=== PATIENT | female | born 1980 | race Caucasian/White ===

== ENCOUNTER → 2023-07-26 09:56 | Outpatient (REF) | payer BC, SELFPAY | LOC: HWRAD 09:56 | PROVIDERS: ATTENDING PHYSICIAN Family Medicine | DX: M54.40 Lumbago with sciatica, unspecified side (principal) | CPT/HCPCS: 72110 ==

== ENCOUNTER → 2024-07-14 18:43 | Outpatient (REF) | payer BC, SELFPAY | LOC: PAVMRI 18:43 | PROVIDERS: ATTENDING PHYSICIAN Family Medicine | DX: M54.40 Lumbago with sciatica, unspecified side (principal); Z85.72 Personal history of non-Hodgkin lymphomas; R29.898 Other symptoms and signs involving the musculoskeletal system; R20.2 Paresthesia of skin | CPT/HCPCS: 72148 ==

== ENCOUNTER → 2024-08-28 09:13 | Outpatient (REF) | payer BC, SELFPAY ==
[2024-08-28 10:24] LABS: % Basophils 0.5 % (0-2); % Eosinophils 1.7 % (0-6); % Immature Granulocytes 0.3 % (0-0.5); % Lymphocytes 34.4 % (20.5-51.1); % Monocytes 8.1 % (1.7-9.3); Absolute Basophils 0.1 10^3/uL (0-0.2); Absolute Eosinophils 0.2 10^3/uL (0-0.7); Absolute Lymphocytes 3.4 10^3/uL (1.2-3.4); Absolute Monocytes 0.8 10^3/uL (0.1-0.6); Absolute Neutrophils 5.4 10^3/uL (1.4-6.5); Hematocrit 37.4 % (37.0-47.0); Hemoglobin 11.5 g/dL (12.0-16.0); Mean Corp Hgb Conc. 30.7 g/dL (33.0-37.0); Mean Corpuscular Hgb 23.8 pg (27.0-31.0); Mean Corpuscular Volume 77.3 fL (81.0-99.0); Mean Platelet Volume 10.2 fL (7.4-10.4); Nucleated Red Blood Cells % 0 %; Platelet Count 395 10^3/uL (130-400); Red Blood Cell Count 4.84 10^6/uL (4.20-5.40); Red Cell Dist. Width 15.9 % (11.5-14.5); White Blood Cell Count 9.8 10^3/uL (4.8-10.8)
[2024-08-28 10:26] LABS: Urine Albumin Negative (Neg - Trace); Urine Bilirubin Negative (Negative); Urine Character Clear (Clear); Urine Color Yellow; Urine Glucose Negative (Negative); Urine Ketone Negative (Negative); Urine Leukocyte 2+ (Negative); Urine Nitrite Negative (Negative); Urine Occult Blood Negative (Negative); Urine Urobilinogen Negative (Neg - 1+)
[2024-08-28 10:41] LABS: Urine Squamous Cell >30 /LPF (Few)
[2024-08-28 10:42] LABS: Urine Bacteria Moderate (Negative); Urine Red Blood Cell 0-2 /HPF (0-2)
[2024-08-28 10:59] LABS: Glycohemoglobin (HgbA1c) 5.7 % (4.0-5.6)
[2024-08-28 11:08] LABS: ALT (SGPT) 33 U/L (0-35); AST (SGOT) 18 U/L (14-36); Albumin 4.4 g/dl (3.5-5.0); Alkaline Phosphatase 84 U/L (38-126); Blood Urea Nitrogen 15 mg/dl (7-17); Calcium 9.8 mg/dl (8.4-10.2); Carbon Dioxide 27 mmol/L (22-30); Chloride 108 mmol/L (98-107); Glucose 95 mg/dl (70-99); HDL Cholesterol 50 mg/dl; Iron 36 ug/dl (37-170); LDL Cholesterol, Calculated 139 mg/dl; Magnesium 2.2 mg/dl (1.6-2.3); Potassium 5.1 mmol/L (3.5-5.1); Sodium 143 mmol/L (135-145); Total Bilirubin 0.3 mg/dl (0.2-1.3); Total Cholesterol 209 mg/dl (50-199); Total Protein 7.3 g/dl (6.3-8.2); Triglyceride 103 mg/dl (10-149); Very Low Density Lipoprotein 20 mg/dl (0-30); eGFR > 60.00
[2024-08-28 11:17] LABS: Percent Saturation 10 % (20-50); Total Iron Binding Capacity 341 ug/dl (265-497)
[2024-08-28 12:41] LABS: Vitamin D, 25-OH*** 14.1 ng/mL (30-80)
[2024-08-28 12:59] LABS: Ferritin 43.7 ng/ml (6.24-137)
[2024-08-28 13:01] LABS: TSH Reflex To Free T4 2.38 uIU/ml (0.47-4.68)
[2024-08-28 13:30] LABS: Folate 3.2 ng/ml (2.76-20); Vitamin B12 363 pg/ml (239-931)
== END ==
LOC: REG 09:13
PROVIDERS: ATTENDING PHYSICIAN Family Medicine
DX: Z85.72 Personal history of non-Hodgkin lymphomas (principal); R53.83 Other fatigue; R73.02 Impaired glucose tolerance (oral); Z13.220 Encounter for screening for lipoid disorders; R20.2 Paresthesia of skin
CPT/HCPCS: 36415; 80053; 80061; 81003; 81015; 82306; 82607; 82728; 82746; 83036; 83540; 83550; 83735; 84443; 85025; 87086

== ENCOUNTER → 2025-03-06 10:31 | Outpatient (REF) | payer BC, SELFPAY ==
[2025-03-06 11:08] LABS: Urine Character Clear (Clear)
[2025-03-06 11:15] LABS: Hematocrit 36.5 % (37.0-47.0); Hemoglobin 10.9 g/dL (12.0-16.0); Mean Corp Hgb Conc. 29.9 g/dL (33.0-37.0); Mean Corpuscular Volume 76.4 fL (81.0-99.0); Nucleated Red Blood Cells % 0 %; Platelet Count 361 10^3/uL (130-400); Red Cell Dist. Width 16.8 % (11.5-14.5); Urine Squamous Cell 26-30 /LPF (Few)
[2025-03-06 11:18] LABS: Urine Red Blood Cell 0-2 /HPF (0-2)
[2025-03-06 11:40] LABS: ALT (SGPT) 46 U/L (0-35); AST (SGOT) 25 U/L (14-36); Albumin 4.0 g/dl (3.5-5.0); Alkaline Phosphatase 95 U/L (38-126); Blood Urea Nitrogen 14 mg/dl (7-17); Calcium 9.7 mg/dl (8.4-10.2); Carbon Dioxide 29 mmol/L (22-30); Chloride 106 mmol/L (98-107); Glucose 103 mg/dl (70-99); HDL Cholesterol 47 mg/dl; Iron 34 ug/dl (37-170); LDL Cholesterol, Calculated 147 mg/dl; Magnesium 2.2 mg/dl (1.6-2.3); Potassium 5.0 mmol/L (3.5-5.1); Sodium 137 mmol/L (135-145); Total Protein 7.1 g/dl (6.3-8.2); Very Low Density Lipoprotein 16 mg/dl (0-30); eGFR > 60.00
[2025-03-06 11:49] LABS: Total Iron Binding Capacity 348 ug/dl (265-497)
[2025-03-06 12:02] LABS: Beta HCG Quantitative 3.33 mIU/ml; FSH 41.6 mIU/ml
[2025-03-06 12:04] LABS: Vitamin D, 25-OH*** 13.8 ng/mL (30-80)
[2025-03-06 12:16] LABS: TSH 1.59 uIU/ml (0.47-4.68)
[2025-03-06 12:17] LABS: Ferritin 38.4 ng/ml (6.24-137)
[2025-03-06 12:53] LABS: Folate 8.1 ng/ml (2.76-20); Vitamin B12 409 pg/ml (239-931)
[2025-03-06 13:49] LABS: Glycohemoglobin (HgbA1c) 5.8 % (4.0-5.9)
== END ==
LOC: REG 10:31
PROVIDERS: ATTENDING PHYSICIAN Family Medicine
DX: Z85.72 Personal history of non-Hodgkin lymphomas (principal); R53.83 Other fatigue; E61.1 Iron deficiency; D64.9 Anemia, unspecified; R73.02 Impaired glucose tolerance (oral); E78.5 Hyperlipidemia, unspecified; N91.2 Amenorrhea, unspecified
CPT/HCPCS: 36415; 80053; 80061; 81003; 81015; 82306; 82607; 82728; 82746; 83001; 83036; 83540; 83550; 83735; 84439; 84443; 84702; 85025; 87086